=== PATIENT | male | born 1995 | race Caucasian/White ===

== ENCOUNTER 2017-01-31 19:12 | Emergency (ER) | payer SELFPAY ==
[2017-01-31] MEDS ORDERED: NO HOME MEDICATION XX (19:15)
[2017-01-31] MEDS ORDERED: NORCO 5-325 TA1 EACH PO (20:57)
== END 2017-01-31 21:17 ==
LOC: EDMED 19:12
PROC: 2W3MX1Z Immobilization of Left Lower Extremity using Splint (ICD-10-PCS; principal; 2017-01-31)
DX: S82.892A Other fracture of left lower leg, initial encounter for closed fracture (principal); W01.0XXA Fall on same level from slipping, tripping and stumbling without subsequent striking against object, initial encounter; Y92.009 Unspecified place in unspecified non-institutional (private) residence as the place of occurrence of the external cause